=== PATIENT | male | born 1965 | race Caucasian/White ===

== ENCOUNTER 2019-06-21 06:02 | Day surgery (SDC) | payer OTHER ==
[~2019-06-21] VITALS: Ht 188 cm; Wt 81.0 kg
[2019-06-21] MEDS ORDERED: VIAGRA100 M1 PO (06:30)
[2019-06-21] MEDS ORDERED: NORVASC 10MG10 MG PO (06:31)
[2019-06-21] MEDS ORDERED: ZOLOFT 100MG100 MG PO (06:31)
[2019-06-21] MEDS ORDERED: MINIPRESS 1M1 MG/CAP PO (06:32)
[2019-06-21] MEDS ORDERED: DESYREL 50MG50 MG PO (06:32)
[2019-06-21] MEDS ORDERED: MYSOLINE 5050 MG/TAB PO (06:33)
[2019-06-21] MEDS ORDERED: INDERAL LA 80MG80 MG PO (06:34)
[2019-06-21] MEDS ORDERED: COMBIRESP IH (06:34)
[2019-06-21] MEDS ORDERED: LIDODERM 5% PATC1 EA TP (06:35)
[2019-06-21] MEDS ORDERED: NEXIUM 40MG40 MG PO (06:36)
[2019-06-21] MEDS ORDERED: XANAX 1MG1 MG PO (06:37)
[2019-06-21] MEDS ORDERED: VITAMIN D 50,1.25 MG PO (06:37)
[2019-06-21] MEDS ORDERED: REFRESH 1 ML1 ML OP (06:38)
[2019-06-21 06:58] VITALS: BP 122/81; PULSE 56; TEMP 97.6
[2019-06-21 08:00] VITALS: BP 116/83; PULSE 63; TEMP 98.1
--- NOTE | 2019-06-21 08:00 | NUR ---
Patient brought back to [facility] via cart. Ambulated to chair without difficulty. Placed on monitors, vitals stable. IV infusing to right arm. Guadalupe at bedside for report. Pt denies pain or nausea. Requesting coffee at this time. at bedside. Call horan within reach, warm blanket provided, will continue to monitor.
[2019-06-21 08:15] VITALS: BP 124/93; PULSE 64
--- NOTE | 2019-06-21 08:15 | NUR ---
Patient tolerating coffee without difficulty. States he feels ready to go home. Dr. Orellana at bedside to explain results. Will continue to monitor.
[2019-06-21 08:30] VITALS: BP 122/85; PULSE 53
--- NOTE | 2019-06-21 08:30 | NUR ---
Discharge instructions reviewed with patient and . All questions answered. IV removed without difficulty. Patient to get dressed at this time.
--- NOTE | 2019-06-21 08:40 | NUR ---
Patient brought down to lobby via wheel chair. To be driven home by .
== END 2019-06-21 08:40 | disposition home or self-care (01) ==
LOC: SDCO 06:02
DX: D12.3 Benign neoplasm of transverse colon (principal); K21.0 Gastro-esophageal reflux disease with esophagitis; K29.30 Chronic superficial gastritis without bleeding; G47.33 Obstructive sleep apnea (adult) (pediatric); J44.9 Chronic obstructive pulmonary disease, unspecified; G89.29 Other chronic pain; G43.909 Migraine, unspecified, not intractable, without status migrainosus; K92.1 Melena; Z86.010 Personal history of colon polyps; Z87.891 Personal history of nicotine dependence; Z80.0 Family history of malignant neoplasm of digestive organs; Z83.71 Family history of colonic polyps; Z96.653 Presence of artificial knee joint, bilateral
CPT/HCPCS: J2250; J2704; J7120